=== PATIENT | female | born 1950 | race Caucasian/White ===

== ENCOUNTER 2019-02-14 18:19 | Inpatient (IN) | payer MEDICARE, SELFPAY ==
[~2019-02-14] VITALS: Ht 170.2 cm; Wt 54.5 kg
--- NOTE | 2019-02-14 18:42 | NUR ---
BROUGHT IN BY FRIEND. PT STATES SHE FELL TODAY AT 0600. STATES HER LEFT ARM STRENGTH HAS BEEN OFF TODAY ALONG WITH HER LEG. SHE HAS HAD SEVERAL EPISODES OF INCONTINENCE. HAS BEEN FEELING FUZZY HEADED TODAY
[2019-02-14 18:53] LABS: BASOPHILS # (AUTO) 0.03 x10^3/uL (0-0.1); BASOPHILS % (AUTO) 0 % (0-1); EOSINOPHILS % (AUTO) 1 % (1-7); LYMPHOCYTES # (AUTO) 1.98 x10^3/uL (1-3.4); LYMPHOCYTES % (AUTO) 26 % (22-44); MD NO; MEAN CORPUSCULAR HEMOGLOBIN 31.9 pg (27.0-34.8); MEAN PLATELET VOLUME 7.8 fL (7.4-10.4); MONOCYTES # (AUTO) 0.75 x10^3/uL (0.2-0.8); MONOCYTES % (AUTO) 10 % (2-9); NEUTROPHILS # (AUTO) 4.72 x10^3/uL (1.8-6.8); NEUTROPHILS % (AUTO) 62 % (42-75); PLATELET COUNT 200 x10^3/uL (130-400); RED BLOOD COUNT 4.87 x10^6/uL (3.82-5.3)
[2019-02-14 19:01] LABS: INTERNATIONAL NORMALIZED RATIO 1.03 (0.93-1.1); PROTHROMBIN TIME 10.8 Seconds (9.6-11.5)
[2019-02-14 19:03] LABS: ALANINE AMINOTRANSFERASE 22 U/L (12-78); ALBUMIN 4.2 g/dL (3.4-5.0); ANION GAP 7 mmol/L (5-15); CALCIUM 9.3 mg/dL (8.5-10.1); CHLORIDE 104 mmol/L (98-107); CREATININE 0.73 mg/dL (0.55-1.02)
[2019-02-14 19:05] LABS: ALKALINE PHOSPHATASE 72 U/L (45-117); BILIRUBIN,TOTAL 0.6 mg/dL (0.2-1.0); TOTAL PROTEIN 7.6 g/dL (6.4-8.2)
--- NOTE | 2019-02-14 19:14 | NUR ---
PT INCONTINENT OF URINE. STRAIGHT CATH URINE SPECIMEN OBTAINED PER ORDERS
[2019-02-14 19:19] LABS: MICROSCOPIC NOT IND
[2019-02-14 19:22] LABS: CULTURE INDICATED? NO
--- NOTE | 2019-02-14 19:45 | NUR ---
BACK TO ROOM AFTER CT COMPLETED
[2019-02-14] MEDS ORDERED: METF500T17 PO (19:53)
[2019-02-14] MEDS ORDERED: CHOL2000 PO (19:53)
[2019-02-14] MEDS ORDERED: ATOR-2 PO (19:53)
[2019-02-14] MEDS ORDERED: LISI2.5T PO (19:53)
[2019-02-14] MEDS ORDERED: ASPIRIN 325 MG TABLET PO ONE (20:00)
[2019-02-14] MEDS ORDERED: ASPIRIN 325 MG TABLET ONE (20:04)
[2019-02-14] MEDS ORDERED: PLEASE ENTER HEIGHT AND WEIGHT MC SCH (20:30)
--- NOTE | 2019-02-14 20:44 | NUR ---
REPORT TO [facility]. PATEL TO BE TRANSPORTED TO FLOOR
[2019-02-14] MEDS ORDERED: ACETAMINOPHEN 650 MG/20.3 ML UDC PO PRN (22:30)
[2019-02-14] MEDS ORDERED: BISACODYL 10 MG SUPP PR PRN (22:30)
[2019-02-14] MEDS ORDERED: ENALAPRILAT 1.25 MG/ML, 2ML IV PRN (22:30)
[2019-02-14] MEDS ORDERED: ONDANSETRON 4 MG TABLET PO PRN (22:30)
[2019-02-14] MEDS ORDERED: ATORVASTATIN 10 MG TABLET PO SCH (22:30)
[2019-02-14] MEDS ORDERED: OMNIPAQUE 350 MG/ML, 100ML BOTTLE ONE (23:46)
[2019-02-15 01:07] VITALS: BP 136/85
[2019-02-15 05:46] LABS: BASOPHILS # (AUTO) 0.06 x10^3/uL (0-0.1); BASOPHILS % (AUTO) 1 % (0-1); EOSINOPHILS % (AUTO) 2 % (1-7); LYMPHOCYTES # (AUTO) 1.69 x10^3/uL (1-3.4); LYMPHOCYTES % (AUTO) 27 % (22-44); MD NO; MEAN CORPUSCULAR HEMOGLOBIN 31.5 pg (27.0-34.8); MEAN CORPUSCULAR HGB CONC 33.5 g/dL (32.4-35.8); MEAN CORPUSCULAR VOLUME 94.1 fL (80-100); MEAN PLATELET VOLUME 7.7 fL (7.4-10.4); MONOCYTES # (AUTO) 0.79 x10^3/uL (0.2-0.8); MONOCYTES % (AUTO) 12 % (2-9); NEUTROPHILS # (AUTO) 3.71 x10^3/uL (1.8-6.8); NEUTROPHILS % (AUTO) 59 % (42-75); PLATELET COUNT 196 x10^3/uL (130-400); RED BLOOD COUNT 4.73 x10^6/uL (3.82-5.3); RED CELL DISTRIBUTION WIDTH 12.9 % (9.6-15.2)
[2019-02-15 06:11] LABS: CHLORIDE 103 mmol/L (98-107)
[2019-02-15 06:22] LABS: ANION GAP 8 mmol/L (5-15); CHOL/HDL RATIO 2.9; CHOLESTEROL, TOTAL 171 mg/dL (140-239); CREATININE 0.68 mg/dL (0.55-1.02); HDL CHOL % 35 % (28-40); HDL CHOLESTEROL (DIRECT) 60 mg/dL (40-60); LDL CHOLESTEROL,CALCULATED 92 mg/dL (54-169); LDL/HDL RATIO 1.5 (0.5-3.0); TRIGLYCERIDES 93 mg/dL (50-200); VLDL CHOLESTEROL 19 mg/dL (0-25)
[2019-02-15] MEDS: INSULIN LISPRO 100 UNITS/ML, PEN SQ-INSULIN SCH ×4 (07:00→21:00)
[2019-02-15 08:27] VITALS: BP 131/67
[2019-02-15] MEDS ORDERED: LISINOPRIL 5 MG TABLET PO SCH (09:00)
[2019-02-15] MEDS: THIAMINE 100MG TABLET PO SCH (09:57)
[2019-02-15] MEDS: FOLIC ACID 1 MG TABLET PO SCH (09:57)
[2019-02-15] MEDS: CHOLECALCIFEROL 1,000 UNIT TABLET PO SCH (09:57)
[2019-02-15] MEDS: ASPIRIN 81 MG TABLET CHEW PO/NG SCH (09:57)
[2019-02-15] MEDS: SODIUM CHLORIDE 0.9% 1,000 ML IV SCH ×2 (09:58→18:03)
[2019-02-15 10:26] LABS: HEMOGLOBIN A1C 7.4 % (4.2-6.3)
[2019-02-15] MEDS: HEPARIN 5,000 UNITS/ML, 1ML SQ SCH ×2 (12:23→21:25)
[2019-02-15 12:36] VITALS: BP 140/68
--- NOTE | 2019-02-15 14:49 | NUR ---
[employer] recommend diet of PUREE/NTL -No straws -Up at 90 -Check for pocketing -Assist as needed -Meds crushed Addendum: 02/15/19 at [address] Amended: Links added.
[2019-02-15 20:49] VITALS: BP 153/76
[2019-02-15] MEDS ORDERED: ATORVASTATIN 80 MG TABLET PO SCH (21:00)
[2019-02-16 00:36] VITALS: BP 156/63
[2019-02-16] MEDS: SODIUM CHLORIDE 0.9% 1,000 ML IV SCH ×2 (02:27→11:00)
[2019-02-16] MEDS: HEPARIN 5,000 UNITS/ML, 1ML SQ SCH ×2 (05:43→11:00)
[2019-02-16] MEDS: INSULIN LISPRO 100 UNITS/ML, PEN SQ-INSULIN SCH ×2 (07:00→11:00)
[2019-02-16 07:34] VITALS: BP 136/60
[2019-02-16] MEDS: THIAMINE 100MG TABLET PO SCH (08:16)
[2019-02-16] MEDS: FOLIC ACID 1 MG TABLET PO SCH (08:16)
[2019-02-16] MEDS: ASPIRIN 81 MG TABLET CHEW PO/NG SCH (08:16)
[2019-02-16] MEDS: CHOLECALCIFEROL 1,000 UNIT TABLET PO SCH (08:16)
[2019-02-16 13:45] VITALS: BP 131/68
[2019-02-16] MEDS ORDERED: THIA100T67 PO (15:02)
[2019-02-16] MEDS ORDERED: ASPI-515 PO/NG (15:02)
[2019-02-16] MEDS ORDERED: FOLI-17 PO (15:02)
[2019-02-16] MEDS ORDERED: ATOR-2 PO (15:02)
[2019-02-16] MEDS ORDERED: INSU100I11 SQ-INSULIN (15:02)
--- NOTE | 2019-02-16 15:31 | NUR ---
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 -Meds crushed Addendum: 02/16/19 at 1531 by ROSA HUDDLESTON Amended: Links added.
== END 2019-02-16 16:07 | DRG 64 ==
LOC: ED 19:12 → EDIP 19:56 → 4EST 20:56
PROVIDERS: ADMIT Family Medicine; ATTEND Family Medicine
PROC: 0T9B70Z Drainage of Bladder with Drainage Device, Via Natural or Artificial Opening (ICD-10-PCS; principal; 2019-02-14)
DX: I63.511 Cerebral infarction due to unspecified occlusion or stenosis of right middle cerebral artery (principal); G93.41 Metabolic encephalopathy; I69.354 Hemiplegia and hemiparesis following cerebral infarction affecting left non-dominant side; F17.203 Nicotine dependence unspecified, with withdrawal; E11.9 Type 2 diabetes mellitus without complications; E78.5 Hyperlipidemia, unspecified; G51.0 Bell's palsy; I10 Essential (primary) hypertension; I16.0 Hypertensive urgency; R13.10 Dysphagia, unspecified; R32 Unspecified urinary incontinence; Z88.6 Allergy status to analgesic agent; W18.39XA Other fall on same level, initial encounter; Y93.89 Activity, other specified; Y92.89 Other specified places as the place of occurrence of the external cause; Y99.8 Other external cause status; Z79.84 Long term (current) use of oral hypoglycemic drugs; S60.222A Contusion of left hand, initial encounter
CPT/HCPCS: 36415; 70450; 70496; 70498; 70551; 71045; 74230; 80048; 80053; 80061; 81003; 82962; 83036; 85025; 85610; 85730; 93005; 93306; 99285; G0378; J1644; Q9967; J1815; J7030